=== PATIENT | female | born 1980 | race American Indian/Alaskan Native ===

== ENCOUNTER 2020-07-04 15:32 | Emergency (ER) | payer OTHER ==
[2020-07-04 15:41] VITALS: BP 134/80
--- NOTE | 2020-07-04 15:49 | Emergency Department Report ---
ED Medical Clearance HPI - General Chief complaint: Medical Clearance Stated complaint: MED REFILL Time Seen by Provider: 07/04/20 15:43 Source: patient Mode of arrival: Ambulatory - History of Present Illness Initial comments: 40-year-old female recently relocated to this area she is having a difficult time getting in to see her primary care doctor and unable to get her inhaler and Zofran refilled. 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 and is concerned that with her activity she her asthma could flare up and she is requesting a refill of her medicines she denies fever no nausea no vomiting she is only here today requesting medication refill Alledged Intoxication: No Compliant with Home Medications: No Traumatic Symptoms: denies traumatic injury Treatments Prior to Arrival: none Home medications: Previous Rx's Medication Instructions Recorded Last Taken Type Albuterol Sulfate [Proair 90 mcg IH Q4H PRN #1 nsinhaler 07/04/20 Unknown Rx Digihaler] Ibuprofen [Motrin] 600 mg PO Q8H PRN #20 tablet 07/04/20 Unknown Rx Ondansetron [Zofran ODT TAB] 8 mg PO Q12HR PRN #12 tab.rapdis 07/04/20 Unknown Rx Allergies/Adverse reactions: Allergies Allergy/AdvReac Type Severity Reaction Status Date / Time aspirin Allergy Itching Verified 07/04/20 15:39 bologna Allergy Itching Uncoded 07/04/20 15:39 ED Review of Systems ROS: Stated complaint: MED REFILL Other details as noted in HPI Comment: All other systems reviewed and negative Constitutional: no symptoms reported Respiratory: no symptoms reported. denies: cough, shortness of breath, SOB with exertion, SOB at rest, wheezing Endocrine: no symptoms reported Gastrointestinal: denies: abdominal pain, nausea, vomiting Skin: denies: rash, lesions Neurological: denies: headache, weakness ED Past Medical Hx - Past Medical History Previous Medical History?: Yes Hx GERD: Yes Hx Asthma: Yes - Surgical History Past Surgical History?: Yes Additional Surgical History: x 4 - Medications Home Medications: Home Medications Medication Instructions Recorded Confirmed Last Taken Type Albuterol Sulfate [Proair 90 mcg IH Q4H PRN #1 nsinhaler 07/04/20 Unknown Rx Digihaler] Ibuprofen [Motrin] 600 mg PO Q8H PRN #20 tablet 07/04/20 Unknown Rx Ondansetron [Zofran ODT TAB] 8 mg PO Q12HR PRN #12 tab.rapdis 07/04/20 Unknown Rx ED Physical Exam - General Limitations: No Limitations General appearance: alert, in no apparent distress - Head Head exam: Present: atraumatic, normal inspection - Eye Eye exam: Present: normal appearance - ENT ENT exam: Present: normal exam - Neck Neck exam: Present: normal inspection - Respiratory Respiratory exam: Present: normal lung sounds bilaterally. Absent: respiratory distress, wheezes, rales, rhonchi, stridor - Cardiovascular Cardiovascular Exam: Present: regular rate, normal heart sounds - GI/Abdominal GI/Abdominal exam: Present: soft - Extremities Exam Extremities exam: Present: normal inspection - Back Exam Back exam: Present: normal inspection - Neurological Exam Neurological exam: Present: alert, oriented X3 - Psychiatric Psychiatric exam: Present: normal affect - Skin Skin exam: Present: warm, dry, intact ED Course Vital Signs 07/04/20 15:39 Temperature 98.6 F Pulse Rate 104 H Respiratory 18 Rate Blood Pressure 134/80 [Right] O2 Sat by Pulse 99 Oximetry ED Medical Decision Making - Medical Decision Making 40-year-old female with a past medical history of asthma and acid reflux her asthma is usually controlled with albuterol inhaler and her Zofran assists her with the nausea accompanied by her acid reflux. She recently relocated to this area and has not been able to get into see a PCP she is currently out of albuterol and Zofran. Patient requesting refill into she will get into see a primary care doctor. She denies any chest pain shortness of breath no wheezing no fever no cough ED Disposition Clinical Impression: Medication refill Disposition: TO HOME OR SELFCARE Is pt being admited?: No Does the pt Need Aspirin: No Condition: Stable Instructions: Medicine Refill at the Emergency Department Prescriptions: Ibuprofen [Motrin] 600 mg PO Q8H PRN #20 tablet PRN Reason: Pain Albuterol Sulfate [Proair Digihaler] 90 mcg IH Q4H PRN #1 nsinhaler PRN Reason: Wheezing Ondansetron [Zofran ODT TAB] 8 mg PO Q12HR PRN #12 tab.rapdis PRN Reason: Nausea Referrals: FARRUKH CHRISTIAN MD [Staff Physician] - 3-5 Days Time of Disposition: 15:57
== END 2020-07-04 17:06 | disposition home or self-care (01) ==
LOC: ED 15:32
DX: J45.909 Unspecified asthma, uncomplicated (principal); K21.9 Gastro-esophageal reflux disease without esophagitis; Z76.0 Encounter for issue of repeat prescription; Z98.890 Other specified postprocedural states; Z79.1 Long term (current) use of non-steroidal anti-inflammatories (NSAID); Z79.899 Other long term (current) drug therapy; Z88.8 Allergy status to other drugs, medicaments and biological substances
CPT/HCPCS: 99282

== ENCOUNTER 2022-01-10 11:19 | Emergency (ER) | payer BC, OTHER ==
[2022-01-10 11:34] VITALS: BP 125/73
--- NOTE | 2022-01-10 12:36 | Emergency Department Report ---
ED Abdominal Pain HPI - General Chief Complaint: Abdominal Pain Stated Complaint: POSSIBLE ALLERGIC REACTION Time Seen by Provider: 01/10/22 12:14 Source: patient Mode of arrival: Ambulatory Limitations: No Limitations - History of Present Illness Initial Comments: 41-year-old female with no significant past medical history reports to the ER for medical clearance. Patient was recently given oral antibiotics for upcoming plastic surgery with Dr. Leatha Stover at [facility] [place]. Patient was taking Keflex as a prophylaxis, patient took 1 dose and reports abdominal cramping. Patient reports calling Dr. Stover's office and was informed that she needs to come to the emergency room for medical clearance in order for Dr. Stover's office to call her in a new antibiotic. Patient reports that she is no longer experiencing abdominal cramping after taking Tylenol for pain. Patient reports no other acute symptoms at this time. Patient reports her first time taking Keflex. No other reactions or symptoms after taking Keflex. - Related Data Previous Rx's Medication Instructions Recorded Last Taken Type Albuterol Sulfate [Proair 90 mcg IH Q4H PRN #1 nsinhaler 07/04/20 Unknown Rx Digihaler] Ibuprofen [Motrin] 600 mg PO Q8H PRN #20 tablet 07/04/20 Unknown Rx Ondansetron [Zofran ODT TAB] 8 mg PO Q12HR PRN #12 tab.rapdis 07/04/20 Unknown Rx Allergies Allergy/AdvReac Type Severity Reaction Status Date / Time aspirin Allergy Itching Verified 07/04/20 15:39 bologna Allergy Itching Uncoded 07/04/20 15:39 ED Review of Systems ROS: Stated complaint: POSSIBLE ALLERGIC REACTION Other details as noted in HPI Comment: All other systems reviewed and negative Gastrointestinal: abdominal pain. denies: nausea, vomiting, diarrhea ED Past Medical Hx - Past Medical History Previous Medical History?: Yes Hx GERD: Yes Hx Asthma: Yes - Surgical History Additional Surgical History: x 4 - Social History Smoking Status: Never Smoker - Medications Home Medications: Home Medications Medication Instructions Recorded Confirmed Last Taken Type Albuterol Sulfate [Proair 90 mcg IH Q4H PRN #1 nsinhaler 07/04/20 Unknown Rx Digihaler] Ibuprofen [Motrin] 600 mg PO Q8H PRN #20 tablet 07/04/20 Unknown Rx Ondansetron [Zofran ODT TAB] 8 mg PO Q12HR PRN #12 tab.rapdis 07/04/20 Unknown Rx ED Physical Exam - General Limitations: No Limitations General appearance: alert, in no apparent distress - Head Head exam: Present: atraumatic, normocephalic - Eye Eye exam: Present: normal appearance - ENT ENT exam: Present: mucous membranes moist - Neck Neck exam: Present: normal inspection - Respiratory Respiratory exam: Present: normal lung sounds bilaterally. Absent: respiratory distress - Cardiovascular Cardiovascular Exam: Present: regular rate, normal rhythm. Absent: systolic murmur, diastolic murmur, rubs, gallop - GI/Abdominal GI/Abdominal exam: Present: soft, normal bowel sounds. Absent: tenderness - Extremities Exam Extremities exam: Present: normal inspection - Back Exam Back exam: Present: normal inspection - Neurological Exam Neurological exam: Present: alert, oriented X3 - Psychiatric Psychiatric exam: Present: normal affect, normal mood - Skin Skin exam: Present: warm, dry, intact, normal color. Absent: rash ED Course Vital Signs 01/10/22 11:30 Temperature 98.9 F Pulse Rate 105 H Respiratory 18 Rate Blood Pressure 125/73 O2 Sat by Pulse 98 Oximetry ED Medical Decision Making - Medical Decision Making 41-year-old female with no significant past medical history reports to the ER for medical clearance. Patient was recently given oral antibiotics for upcoming plastic surgery with Dr. Leatha Stover at [facility] [place]. Patient was taking Keflex as a prophylaxis, patient took 1 dose and reports abdominal cramping. Patient reports calling Dr. Stover's office and was informed that she needs to come to the emergency room for medical clearance in order for Dr. Stover's office to call her in a new antibiotic. Patient reports that she is no longer experiencing abdominal cramping after taking Tylenol for pain. Patient reports no other acute symptoms at this time. Patient reports her first time taking Keflex. No other reactions or symptoms after taking Keflex. Currently patient reports no abdominal cramping. No acute findings on physical exam. Patient states that her plastic surgeon is going to call her in a new antibiotic after she turns in her visit information from the ER. No imaging is needed no labs are needed. Patient is medically stable from a clinical standpoint based on physical exam. Patient agrees with plan of care and verbalized understanding. Vital Signs 01/10/22 11:30 Temperature 98.9 F Pulse Rate 105 H Respiratory 18 Rate Blood Pressure 125/73 O2 Sat by Pulse 98 Oximetry Critical care attestation.: If time is entered above; I have spent that time in minutes in the direct care of this critically ill patient, excluding procedure time. ED Disposition Clinical Impression: Abdominal cramping, Medication side effect Disposition: HOME / SELF CARE / HOMELESS Is pt being admited?: No Condition: Stable Instructions: Abdominal Pain, Adult, Drug Allergy, Abdominal Pain (ED) Referrals: PRIMARY CARE, [Primary Care Provider] - 3-5 Days Time of Disposition: 12:35
== END 2022-01-10 19:44 | disposition home or self-care (01) ==
LOC: ED 11:19
DX: R10.9 Unspecified abdominal pain (principal); T50.905A Adverse effect of unspecified drugs, medicaments and biological substances, initial encounter; X58.XXXA Exposure to other specified factors, initial encounter; Y92.89 Other specified places as the place of occurrence of the external cause; Z91.09 Other allergy status, other than to drugs and biological substances
CPT/HCPCS: 99282